=== PATIENT | female | born 1955 | race Caucasian/White ===

== ENCOUNTER 2017-03-24 11:26 | Emergency (ER) | payer OTHER ==
[~2017-03-24] VITALS: Wt 51.0 kg
[2017-03-24] MEDS ORDERED: PRED20TA PO (11:47)
[2017-03-24] MEDS ORDERED: HC30CR25 TOP (11:47)
[2017-03-24] MEDS ORDERED: BEN25 PO (11:49)
[2017-03-24] MEDS ORDERED: FAMO-96 PO (11:49)
--- NOTE | 2017-03-24 12:03 | ERD ---
ER Documentation Chief Complaint Date/Time DATE: 03/24/17 TIME: 12:00 Chief Complaint LEFT ARM RASH, X 3 DAYS HPI Patient is a 62-year-old female with no past medical history who presents to the ED with generalized body rash 3 days. She states that she was cleaning her house and developed pruritic rash on her arms abdomen and legs. She denies pain. Denies difficulty breathing or swallowing. Denies fever or chills. Denies nausea, vomiting or diarrhea. She has not taken any medication for symptoms. Denies seizures. No other complaints. ROS All systems reviewed and are negative except as per history of present illness. Medications Home Meds Active Scripts Famotidine* (Pepcid*) 20 Mg Tablet, 20 MG PO BID for 4 Days, TAB Prov:MATTHEW DORSEY PA-C 03/24/17 Diphenhydramine Hcl* (Benadryl*) 25 Mg Cap, 25 MG PO Q6, #30 CAP Prov:MATTHEW DORSEY PA-C 03/24/17 Hydrocortisone* Topical (Hydrocortisone* Topical) 2.5%-28.3 Gm Cream..g., 1 APPLIC TOP BID, #2 TUB Prov:MATTHEW DORSEY PA-C 03/24/17 Prednisone* (Prednisone*) 20 Mg Tab, 40 MG PO DAILY for 4 Days, TAB Prov:MATTHEW DORSEY PA-C 03/24/17 PMhx/Soc History of Surgery: No Anesthesia Reaction: No Hx Neurological Disorder: No Hx Respiratory Disorders: No Hx Cardiac Disorders: No Hx Psychiatric Problems: No Hx Miscellaneous Medical Probl: No Hx Alcohol Use: No Hx Substance Use: No Hx Tobacco Use: No Smoking Status: Never smoker Physical Exam Vitals Vital Signs Date Time Temp Pulse Resp B/P Pulse Ox O2 Delivery O2 Flow Rate FiO2 03/24/17 11:32 98.3 85 18 116/56 99 Physical Exam GENERAL: Well-developed, well-nourished female. Appears in no acute distress. HEAD: Normocephalic, atraumatic. EYES: Pupils are equally reactive bilaterally. EOMs grossly intact. No conjunctival erythema. ENT: Moist mucous membranes. No uvula deviation. No kissing tonsils. No exudates. NECK: Supple. No lymphadenopathy or thyromegaly. No meningismus. negative kernig. negative brudinski. LUNG: Clear to auscultation bilaterally. No rhonchi, wheezing, rales or coarse breath sounds. HEART: Regular rate and rhythm. No murmurs, rubs or gallops. Extremities: Equal pulses bilaterally. No peripheral clubbing, cyanosis or edema. No unilateral leg swelling. NEUROLOGIC: Alert and oriented. Moving all four extremities. 5/5 strength in all extremities. Normal speech. Steady gait. SKIN: Normal color. Warm and dry. Erythematous rash on abdomen, arms and legs. No signs of infection. No streaking. Capillary refill < 2 seconds Procedures/MDM ER COURSE: I kept the patient and/or family informed of laboratory and diagnostic imaging results throughout the emergency room course. MEDICAL DECISION MAKING: This is a 62-year-old who presents with rash 3 days. Vital signs were reviewed. Patient is afebrile. Patient is not hypoxic. Patient is nontoxic or ill-appearing. Patient's rash is of unknown etiology likely allergic. Low suspicion for necrotizing fasciitis, SJS, toxic epidermal necrolysis, Kawasaki, erythema multiforme, gangrene, scarlet fever, meningococcemia, sepsis, anaphylaxis, sepsis, deep space infection, or foreign body. Patient does not show signs of respiratory distress. Does not show signs of anemia. Is speaking in full sentences. No tongue or lip swelling DISCHARGE: At this time, patient is stable for discharge and outpatient management with no new complaints during the ER course. Patient was sent home with Pepcid, Benadryl , hydrocortisone cream and prednisone. Patient will be discharged home with instructions to recheck for new or worsening symptoms such as fever, nausea, weakness, LOC and to follow up with primary care in the next 1-2 days. Patient was advised to return to the ER for any new or worsening symptoms. Plan was discussed and patient and/or family understands and agrees. Home instructions were given. Departure Diagnosis: Primary Impression: Rash Condition: Stable Patient Instructions: Self-Care for Skin Rashes Additional Instructions: Llame al doctor ENMANUEL y jelena roly LAURA PARA DENTRO DE 1-2 BHAT.Dgale a la secretaria que nosotros le instruimos hacer esta laura.Avise o llame si spear condicin se empeora antes de la laura. Regresa aqui si peor o no mejor. MATTHEW DORSEY PA-C Mar 24, 2017 12:03
== END 2017-03-24 12:20 | disposition home or self-care (01) ==
LOC: FTE 11:26
DX: R21 Rash and other nonspecific skin eruption (principal)
CPT/HCPCS: 99283